=== PATIENT | male | born 1970 | race Hispanic/Latino ===

== ENCOUNTER 2022-01-04 23:42 | Emergency (ER) | payer OTHER, SELFPAY | END 2022-01-05 01:27 | disposition home or self-care (01) | LOC: ERS 23:42 → EDSEX 23:42 → ERS 01-05 01:27 | DX: M25.571 Pain in right ankle and joints of right foot (principal); V40.1XXA Car passenger injured in collision with pedestrian or animal in nontraffic accident, initial encounter; W22.10XA Striking against or struck by unspecified automobile airbag, initial encounter ==